=== PATIENT | male | born 1995 | race Caucasian/White ===

== ENCOUNTER 2019-02-06 10:29 | Emergency (ER) | payer OTHER ==
[~2019-02-06] VITALS: Ht 172.7 cm; Wt 63.5 kg
[~2019-02-06 10:29] MED LIST: ASPIRIN325 MG PO; ERYTHROMYCIN3.5 GM OD; OXYCODONE HCL5 M1 PO; OXYCODONE HCL5 MG PO
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
== END 2019-02-06 12:38 | disposition home or self-care (01) ==
LOC: ED 10:29
PROC: 2W3EX1Z Immobilization of Right Hand using Splint (ICD-10-PCS; principal; 2019-02-06)
DX: S62.324A Displaced fracture of shaft of fourth metacarpal bone, right hand, initial encounter for closed fracture (principal); Z87.891 Personal history of nicotine dependence; Z79.82 Long term (current) use of aspirin; W22.8XXA Striking against or struck by other objects, initial encounter
CPT/HCPCS: 29125; 99283-25

== ENCOUNTER 2019-08-13 11:27 | Emergency (ER) | payer SELFPAY ==
[~2019-08-13] VITALS: Ht 172.7 cm; Wt 63.5 kg
== END 2019-08-13 12:45 | disposition home or self-care (01) ==
LOC: ED 11:27
DX: N34.2 Other urethritis (principal); F17.200 Nicotine dependence, unspecified, uncomplicated
CPT/HCPCS: 96372; 99284; J0696

== ENCOUNTER 2019-12-14 10:05 | Emergency (ER) | payer OTHER ==
[~2019-12-14] VITALS: Ht 172.7 cm; Wt 63.5 kg
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
== END 2019-12-14 10:23 | disposition home or self-care (01) ==
LOC: ED 10:05
DX: Z20.2 Contact with and (suspected) exposure to infections with a predominantly sexual mode of transmission (principal)